=== PATIENT | female | born 1995 | race Caucasian/White ===

== ENCOUNTER 2021-03-09 20:34 | Emergency (ER) | payer OTHER ==
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
[2021-03-09 22:56] VITALS: BP 103/64; PULSE 77; O2SAT 98
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
== END 2021-03-09 22:55 | disposition home or self-care (01) ==
LOC: ED 20:34
DX: S06.0X9A Concussion with loss of consciousness of unspecified duration, initial encounter (principal); Y93.16 Activity, rowing, canoeing, kayaking, rafting and tubing; Y92.9 Unspecified place or not applicable; Y99.8 Other external cause status
CPT/HCPCS: 36000; 70450; 72125; 99284